=== PATIENT | female | born 1990 | race Caucasian/White ===

== ENCOUNTER 2019-09-01 06:36 | Outpatient (CLI) | payer OTHER | END 2019-09-01 06:56 | disposition home or self-care (01) | LOC: LAB 06:36 | DX: R76.0 Raised antibody titer (principal) ==

== ENCOUNTER 2021-07-12 07:20 | Outpatient (CLI) | payer OTHER | END 2021-07-12 08:25 | disposition home or self-care (01) | LOC: MRI 07:20 | DX: G43.109 Migraine with aura, not intractable, without status migrainosus (principal) | CPT/HCPCS: 70544; 70552 ==

== ENCOUNTER 2023-05-14 07:59 | Outpatient (CLI) | payer OTHER | END 2023-05-14 08:22 | disposition home or self-care (01) | LOC: MRI 07:59 | PROVIDERS: ATTEND Orthopaedic Surgery | DX: S83.200A Bucket-handle tear of unspecified meniscus, current injury, right knee, initial encounter (principal); S83.201A Bucket-handle tear of unspecified meniscus, current injury, left knee, initial encounter | CPT/HCPCS: 73721 ==

== ENCOUNTER 2023-05-21 08:15 | Outpatient (CLI) | payer OTHER | END 2023-05-21 08:57 | disposition home or self-care (01) | LOC: MRI 08:15 | PROVIDERS: ATTEND Internal Medicine Rheumatology | DX: M54.16 Radiculopathy, lumbar region (principal) | CPT/HCPCS: 72148 ==

== ENCOUNTER 2023-06-19 12:25 | Outpatient (CLI) | payer OTHER | END 2023-06-19 12:44 | disposition home or self-care (01) | LOC: SONOGRAMA 12:25 | DX: N92.0 Excessive and frequent menstruation with regular cycle (principal) ==

== ENCOUNTER 2023-07-03 06:28 | Outpatient (CLI) | payer OTHER ==
[2023-07-03 07:16] LABS: CREATININE SERUM 0.74 mg/dL (0.55-1.02)
== END 2023-07-03 06:30 | disposition home or self-care (01) ==
LOC: LAB 06:28
PROVIDERS: ATTEND Radiology Diagnostic Radiology
DX: D35.2 Benign neoplasm of pituitary gland (principal)

== ENCOUNTER → 2023-07-03 | Outpatient (CLI) | payer OTHER | END | disposition home or self-care (01) | LOC: MRI 07:09 | DX: E22.8 Other hyperfunction of pituitary gland (principal); M25.551 Pain in right hip; M25.552 Pain in left hip ==

== ENCOUNTER 2023-07-08 07:43 | Outpatient (CLI) | payer OTHER | END 2023-07-08 07:52 | disposition home or self-care (01) | LOC: MRI 07:43 | DX: D35.2 Benign neoplasm of pituitary gland (principal); E22.8 Other hyperfunction of pituitary gland | CPT/HCPCS: 70553 ==

== ENCOUNTER 2023-07-23 08:08 | Outpatient (CLI) | payer OTHER | END 2023-07-23 08:17 | disposition home or self-care (01) | LOC: SONOGRAMA 08:08 | PROVIDERS: ATTEND General Practice | DX: E04.2 Nontoxic multinodular goiter (principal); E55.9 Vitamin D deficiency, unspecified; E56.8 Deficiency of other vitamins ==

== ENCOUNTER 2024-03-31 07:53 | Outpatient (CLI) | payer OTHER | END 2024-03-31 07:56 | disposition home or self-care (01) | LOC: TOM 07:53 | PROVIDERS: ATTEND Obstetrics & Gynecology | DX: M25.531 Pain in right wrist (principal); R10.2 Pelvic and perineal pain ==

== ENCOUNTER → 2024-10-07 | Emergency (ER) | payer OTHER ==
[~2024-10-07] VITALS: Ht 157.5 cm; Wt 79.4 kg
[~2024-10-07] MED LIST: ARAVA10 MG; CYMBALTA60 MG; LYRICA200 MG PO; TOPAMAX50 MG
== END | disposition left against medical advice (07) ==
LOC: ER 17:33
DX: Z53.21 Procedure and treatment not carried out due to patient leaving prior to being seen by health care provider (principal)